=== PATIENT | female | born 1965 | race Asian ===

== ENCOUNTER 2017-10-01 09:36 | Emergency (ER) | payer SELFPAY ==
[2017-10-01 09:49] VITALS: TEMP 99.2; BMI 25.0
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
--- NOTE | 2017-10-01 10:32 | PDOC ---
Attending Attestation - Resident Resident Name: PatrickRuth - ED Attending Attestation I have performed the following: I have examined & evaluated the patient, The case was reviewed & discussed with the resident, I agree w/resident's findings & plan, Exceptions are as noted - HPI HPI: 10/01/17 13:00 Ms godwin is a 52 yo F p/w a complaint of chest pain Pt has had 1 week of URI symptoms and cough Pain is located in the left frontal chest, achy, rated 4/10, no radiation No MARTÍNEZ, palpitations, lightheadedness, nausea/vomiting. No fevers/chills. - Physicial Exam PE: 10/01/17 13:02 Physical Exam 10/01/17 12:36 General: Alert, verbal, NAD Chest: R frontal, lateral chest wall tenderness CV: S1/S2, no M/R/G Respiratory: CLTA B/L, no wheeze, rhonci, crackle Abdomen: soft, abdominal distention, non-tender, (+) bowel sounds - Medical Decision Making 10/01/17 10:32 EKG: SR rate of 60 bpm, axis nml, intervals nml, no st elevations or depressions 10/01/17 13:02 Laboratory Tests 10/01/17 10/01/17 10/01/17 10:15 10:20 10:20 WBC 5.3 Hgb 12.5 Hct 37.1 Plt Count 253 Sodium 141 Potassium 3.8 Chloride 107 Carbon Dioxide 28 BUN 10 Creatinine 0.7 Random Glucose 86 Creatine Kinase 73 Troponin I < 0.02 B-Natriuretic Peptide 78.12 CXR: no acute infiltrate Will discharge to home Will provide treatment for possible pneumonia and also superficial bite to her leg upon re assessment, pt states she feels better She feels that the fluids given made her bloated Clinical Impression: Upper Respiratory infection, initial presentation
[2017-10-01 10:41] LABS: BASO % 0.7 % (0-2.0); EOS % 6.4 % (0-4.5); HEMATOCRIT 37.1 % (32.4-45.2); HEMOGLOBIN 12.5 GM/dL (10.7-15.3); LYMPH % 40.6 % (8-40); MCH 29.8 pg (25.7-33.7); MCHC 33.8 g/dl (32.0-36.0); MEAN CELL VOLUME 88.1 fl (80-96); MEAN PLT VOLUME 6.6 fl (7.5-11.1); MONO % 5.6 % (3.8-10.2); NEUT % 46.7 % (42.8-82.8); PLATELET COUNT 253 K/MM3 (134-434); RDW 12.6 % (11.6-15.6); WHITE BLOOD COUNT 5.3 K/mm3 (4.0-10.0)
[2017-10-01 10:51] LABS: ALBUMIN 3.6 g/dl (3.4-5.0); ANION GAP 6 (8-16); BILIRUBIN,TOTAL 0.4 mg/dL (0.2-1.0); BLOOD UREA NITROGEN 10 mg/dL (7-18); CALCIUM 8.6 mg/dL (8.5-10.1); CHLORIDE 107 mmol/L (98-107); CO2 28 mmol/L (21-32); CREATININE 0.7 mg/dL (0.55-1.02); GLUCOSE,RANDOM 86 mg/dL (74-106); POTASSIUM 3.8 mmol/L (3.5-5.1); SGOT/AST 17 U/L (15-37); SGPT/ALT 20 U/L (12-78); SODIUM 141 mmol/L (136-145); TOT PROT 6.9 g/dl (6.4-8.2)
[2017-10-01 10:54] LABS: ALK PHOS 93 U/L (45-117)
[2017-10-01] MEDS ORDERED: SODIUM CHLORIDE 1,000 ML IV ONE (11:20)
[2017-10-01] MEDS ORDERED: DIPHTH,PERTUSS(ACELL),TET 0.5 ML DISP.SYRIN IM ONE (11:34)
[2017-10-01 12:09] VITALS: BP 137/85; PULSE 48
--- NOTE | 2017-10-01 19:01 | EKG ---
Test Reason : Blood Pressure : / mmHG Vent. Rate : 060 BPM Atrial Rate : 060 BPM P-R Int : 148 ms QRS Dur : 066 ms QT Int : 380 ms P-R-T Axes : 053 007 024 degrees QTc Int : 380 ms NORMAL SINUS RHYTHM NORMAL ECG NO PREVIOUS ECGS AVAILABLE Confirmed by MD DIAZ, DANIEL ([id number]) on 10/01/2017 7:00:31 PM Referred By: Confirmed By:DANIEL PERALES MD
== END 2017-10-01 12:58 | disposition home or self-care (01) ==
LOC: JER 09:36
PROC: 3E0234Z Introduction of Serum, Toxoid and Vaccine into Muscle, Percutaneous Approach (ICD-10-PCS; principal; 2017-10-01)
PROC: 3E0337Z Introduction of Electrolytic and Water Balance Substance into Peripheral Vein, Percutaneous Approach (ICD-10-PCS; 2017-10-01)
DX: J40 Bronchitis, not specified as acute or chronic (principal); S80.871A Other superficial bite, right lower leg, initial encounter; W50.3XXA Accidental bite by another person, initial encounter; Y93.F9 Activity, other caregiving; Y92.89 Other specified places as the place of occurrence of the external cause; Y99.0 Civilian activity done for income or pay
CPT/HCPCS: 36415; 71046-TC-FY; 80053; 82550; 83880; 84484; 85025; 90715; 93005; 93010; 99283-25; J7030

== ENCOUNTER 2019-01-25 11:07 | Emergency (ER) | payer OTHER ==
[2019-01-25 11:38] VITALS: BP 157/85; PULSE 61; TEMP 98; BMI 23.6
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
== END 2019-01-25 12:25 | disposition home or self-care (01) ==
LOC: JERFT 11:07
DX: S41.152A Open bite of left upper arm, initial encounter (principal); Y04.1XXA Assault by human bite, initial encounter; Y93.F1 Activity, caregiving, bathing; Y92.15 Reform school as the place of occurrence of the external cause; Y99.0 Civilian activity done for income or pay; I10 Essential (primary) hypertension; E78.5 Hyperlipidemia, unspecified; E78.00 Pure hypercholesterolemia, unspecified; J45.909 Unspecified asthma, uncomplicated
CPT/HCPCS: 99281-25

== ENCOUNTER 2019-03-02 09:01 | Emergency (ER) | payer OTHER ==
[2019-03-02 09:15] VITALS: BMI 24.7
[2019-03-02] MEDS ORDERED: ALBUTEROL SO4 2.5/IPRATROPIUM 0.5 INH SOL 3 ML VIAL.NEB. NEB ONE ×4 (10:28→12:30)
[2019-03-02] MEDS ORDERED: SODIUM CHLORIDE 1,000 ML IV STA (10:28)
--- NOTE | 2019-03-02 10:29 | PDOC ---
History of Present Illness - General History Source: Patient Exam Limitations: No Limitations <Ronit Kim - Last Filed: 03/02/19 13:16> <May Hernandez - Last Filed: 03/02/19 18:38> - General Chief Complaint: Respiratory Stated Complaint: ANXIETY ATTACK Time Seen by Provider: 03/02/19 09:26 Past History - Travel Traveled outside of the country in the last 30 days: No Close contact w/someone who was outside of country & ill: No - Past Medical History Asthma: Yes COPD: No HTN: Yes Hypercholesterolemia: Yes - Immunization History Immunization Up to Date: Yes - Psycho Social/Smoking Cessation Hx Smoking History: Never smoked Hx Alcohol Use: No Drug/Substance Use Hx: No <Ronit Kim - Last Filed: 03/02/19 13:16> <May Hernandez - Last Filed: 03/02/19 18:38> - Past Medical History Allergies/Adverse Reactions: Allergies Allergy/AdvReac Type Severity Reaction Status Date / Time No Known Allergies Allergy Verified 03/02/19 09:05 Home Medications: Ambulatory Orders Albuterol Sulfate Inhaler - [Ventolin HFA Inhaler -] 1 - 2 inh PO Q4H #1 inhaler 03/02/19 Amlodipine Besylate 10 mg PO DAILY 03/02/19 Ergocalciferol [Vitamin D2] 50,000 unit PO Q7D@1000 03/02/19 Simvastatin 20 mg PO DAILY 03/02/19 Review of Systems - Review of Systems Able to Perform ROS?: Yes Comments:: 03/02/19 10:28 CONSTITUTIONAL: Absent: fever, chills, diaphoresis, generalized weakness, malaise, loss of appetite HEENT: Absent: rhinorrhea, nasal congestion, throat pain, throat swelling, difficulty swallowing, mouth swelling, ear pain, eye pain, visual Changes CARDIOVASCULAR: Absent: chest pain, loss of consciousness, palpitations, irregular heart rate, peripheral edema RESPIRATORY: Present: Difficulty breathing absent: cough, shortness of breath, dyspnea with exertion, orthopnea, wheezing, stridor, hemoptysis GASTROINTESTINAL: Absent: abdominal pain, abdominal distension, nausea, vomiting, diarrhea, constipation, melena, hematochezia GENITOURINARY: Absent: dysuria, frequency, urgency, hesitancy, hematuria, flank pain, genital pain MUSCULOSKELETAL: Absent: myalgia, arthralgia, joint swelling SKIN: Absent: rash, itching, pallor HEMATOLOGIC/IMMUNOLOGIC: Absent: easy bleeding, easy bruising, lymphadenopathy, frequent infections ENDOCRINE: Absent: unexplained weight gain, unexplained weight loss, heat intolerance, cold intolerance NEUROLOGIC: Absent: headache, focal weakness or paresthesias, dizziness, unsteady gait, seizure, mental status changes, bladder or bowel incontinence PSYCHIATRIC: Absent: anxiety, depression, suicidal or homicidal ideation, hallucinations. Is the patient limited Maltese proficient: No <Ronit Kim - Last Filed: 03/02/19 13:16> *Physical Exam - Vital Signs Last Vital Signs Temp Pulse Resp BP Pulse Ox 98.0 F 83 18 141/93 100 03/02/19 09:10 03/02/19 09:10 03/02/19 09:10 03/02/19 09:10 03/02/19 09:10 - Physical Exam 03/02/19 10:28 GENERAL: Well developed, well nourished. Awake and alert. No acute distress. HEENT: Normocephalic, atraumatic. PERRLA, EOMI. No conjunctival pallor. Sclera are non- icteric. Moist mucous membranes. Oropharynx is clear. NECK: Supple. Full ROM. No lymphadenopathy. CARDIOVASCULAR: Regular rate and rhythm. No murmurs, rubs, or gallops. Distal pulses are 2+ and symmetric. PULMONARY: No evidence of respiratory distress. Lungs clear to auscultation bilaterally. No wheezing, rales or rhonchi. ABDOMINAL: Soft. Non-tender. Non-distended. No rebound or guarding. No organomegaly. Normoactive bowel sounds. MUSCULOSKELETAL Normal range of motion at all joints. No bony deformities or tenderness. No CVA tenderness. EXTREMITIES: No cyanosis. No clubbing. No edema. No calf tenderness. SKIN: Warm and dry. Normal capillary refill. No rashes. No jaundice. NEUROLOGICAL: Alert, awake, appropriate. Cranial nerves 2-12 intact. No deficits to light touch and temperature in face, upper extremities and lower extremities. No motor deficits in the in face, upper extremities and lower extremities. Normoreflexic in the upper and lower extremities. Normal speech. Toes are down- going bilaterally. Gait is normal without ataxia. PSYCHIATRIC: Cooperative. Good eye contact. Appropriate mood and affect. <Ronit Kim - Last Filed: 03/02/19 13:16> - Vital Signs Last Vital Signs Temp Pulse Resp BP Pulse Ox 98.3 F 74 81 H 116/83 99 03/02/19 09:15 03/02/19 09:15 03/02/19 09:15 03/02/19 09:15 03/02/19 09:15 <May Hernandez - Last Filed: 03/02/19 18:38> ED Treatment Course - LABORATORY CBC & Chemistry Diagram: 03/02/19 11:00 03/02/19 11:00 <Ronit Kim - Last Filed: 03/02/19 13:16> - LABORATORY CBC & Chemistry Diagram: 03/02/19 11:00 03/02/19 11:00 - ADDITIONAL ORDERS Additional order review: Laboratory Results 03/02/19 11:00 Sodium 139 Potassium 4.0 Chloride 105 Carbon Dioxide 28 Anion Gap 6 L BUN 10.9 Creatinine 0.8 Est GFR (CKD-EPI)AfAm 97.55 Est GFR (CKD-EPI)NonAf 84.17 Random Glucose 117 H Calcium 9.4 Phosphorus 3.7 Magnesium 2.3 Total Bilirubin 0.2 AST 20 ALT 26 Alkaline Phosphatase 102 Total Protein 7.7 Albumin 4.0 03/02/19 11:00 RBC 4.64 MCV 88.3 MCHC 34.1 RDW 12.0 MPV 7.0 L Neutrophils % 76.0 D Lymphocytes % 17.3 D Monocytes % 4.5 Eosinophils % 1.5 Basophils % 0.7 - Medications Given in the ED: ED Medications Discontinued Medications Generic Name Dose Route Start Last Admin Trade Name Freq PRN Reason Stop Dose Admin Albuterol/Ipratropium 1 amp 03/02/19 10:28 03/02/19 11:06 Duoneb - NEB 03/02/19 10:29 1 amp ONCE ONE Administration Albuterol/Ipratropium 1 amp 03/02/19 12:16 03/02/19 12:32 Duoneb - NEB 03/02/19 12:17 1 amp ONCE ONE Administration Sodium Chloride 1,000 mls @ 1,000 mls/hr 03/02/19 10:28 03/02/19 11:11 Normal Saline - IV 03/02/19 11:27 1,000 mls/hr ASDIR STA Administration <May Hernandez - Last Filed: 03/02/19 18:38> Medical Decision Making - Medical Decision Making 03/02/19 11:08 The patient is a 53-year-old female with past medical history of asthma, who presents to the ER today after having shortness of breath at school. 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 She states that she was moving multiple kids in and out of their van into the school in the cold when she became suddenly short of breath. She states that then she felt very numb and tingly all over. She states the episode was brief and has since resolved. She states that she still feels tired, and the shortness of breath has gotten better but she still states she is slightly short of breath. She has not used a rescue inhaler today. Currently denies numbness in her face legs hands, tingling, nausea, vomiting, weakness and dizziness. A/P: Shortness of breath. On exam lungs are clear to auscultation bilaterally with no wheezes rales or rhonchi. Heart sounds S1-S2 present, no murmurs rubs or gallops. Regular rate and rhythm. Questionable asthma exacerbation versus panic attack given the cramping and numbing symptoms that have since resolved. Basic labs, DuoNeb given Reevaluate 03/02/19 13:18 Pt reports feeling better after two duonebs Electrolytes within normal limits Likely asthma exacerbation with some underlying anxiety. DC home with PCP follow up and inhaler I discussed the physical exam findings, ancillary test results and final diagnoses with the patient. I answered all of the patient's questions. The patient was satisfied with the care received and felt comfortable with the discharge plan and treatment plan. The Patient agrees to follow up with the primary care physician/specialist within 24-72 hours. Return precautions were given. <Ronit Kim - Last Filed: 03/02/19 13:16> - Medical Decision Making I reviewed the case with the mid-level practitioner and agree with the mid- level practitioner's assessment, diagnosis and disposition. <May Hernandez - Last Filed: 03/02/19 18:38> Discharge - Discharge Information Problems reviewed: Yes - Admission No <Ronit Kim - Last Filed: 03/02/19 13:16> <DavidMay - Last Filed: 03/02/19 18:38> - Discharge Information Clinical Impression/Diagnosis: Shortness of breath Condition: Stable Disposition: HOME - Additional Discharge Information Prescriptions: Albuterol Sulfate Inhaler - [Ventolin HFA Inhaler -] 1 - 2 inh PO Q4H #1 inhaler - Follow up/Referral Referrals: Lyndsey Stewart MD [Primary Care Provider] - - Patient Discharge Instructions Patient Printed Discharge Instructions: DI for Asthma -- Adult Additional Instructions: Your evaluated for your asthma exacerbation today. Please use your inhaler every 4 hours until your symptoms resolve. Please drink plenty of fluids. Follow-up with your primary care doctor this week. Return to the ER for any worsening of your breathing, shortness of breath, chest pain or if you have any changes in your symptoms.
[2019-03-02 11:04] VITALS: BP 116/83; PULSE 74; TEMP 98.3
[2019-03-02 11:19] LABS: BASO % 0.7 % (0-2.0); EOS % 1.5 % (0-4.5); LYMPH % 17.3 % (8-40); MCH 30.1 pg (25.7-33.7); MCHC 34.1 g/dl (32.0-36.0); MEAN CELL VOLUME 88.3 fl (80-96); MONO % 4.5 % (3.8-10.2); PLATELET COUNT 274 K/MM3 (134-434); RBC 4.64 M/mm3 (3.60-5.2); WHITE BLOOD COUNT 8.7 K/mm3 (4.0-10.0)
[2019-03-02 11:48] LABS: BILIRUBIN,TOTAL 0.2 mg/dL (0.2-1); BLOOD UREA NITROGEN 10.9 mg/dL (7-18); CALCIUM 9.4 mg/dL (8.5-10.1); CREATININE 0.8 mg/dL (0.55-1.3); MAGNESIUM 2.3 mg/dL (1.8-2.4); PHOSPHOROUS 3.7 mg/dL (2.5-4.9); TOT PROT 7.7 g/dl (6.4-8.2)
== END 2019-03-02 13:36 | disposition home or self-care (01) ==
LOC: JER 09:01
PROC: 3E0F7GC Introduction of Other Therapeutic Substance into Respiratory Tract, Via Natural or Artificial Opening (ICD-10-PCS; principal; 2019-03-02)
PROC: 3E0337Z Introduction of Electrolytic and Water Balance Substance into Peripheral Vein, Percutaneous Approach (ICD-10-PCS; 2019-03-02)
DX: R06.02 Shortness of breath (principal); I10 Essential (primary) hypertension; E78.00 Pure hypercholesterolemia, unspecified
CPT/HCPCS: 36415; 80053; 83735; 84100; 85025; 99283-25; J7030